=== PATIENT | male | born 1935 | race Caucasian/White ===

== ENCOUNTER → 2016-11-12 | Outpatient (CLI) | payer MEDICARE, BC ==
[~2016-11-12] MED LIST: DIAZEPAM 10 MG TABLET. ONE; HEPARIN SODIUM 5,000 UNIT/ML VIAL for PCVC. ONE; IOHEXOL 300 MG/ML 100ML VIAL. ONE; IV NORMAL SALINE 1000ML BAG 1,000 ML ONE; LIDOCAINE 1% Multi-Dose 20 ML VIAL. ONE; MIDAZOLAM HCL/PF 2 MG/2 ML VIAL. ONE; fentaNYL PF VIAL 100 MCG/2 ML VIAL ONE; hydrALAZINE 20 MG/ML VIAL. ONE
== END | disposition home or self-care (01) ==
LOC: PCVCINTER 08:39
PROVIDERS: ATTEND Nuclear Medicine Nuclear Cardiology
DX: T82.538A Leakage of other cardiac and vascular devices and implants, initial encounter (principal); I71.4 Abdominal aortic aneurysm, without rupture; I70.1 Atherosclerosis of renal artery; I15.0 Renovascular hypertension; I72.3 Aneurysm of iliac artery; E78.00 Pure hypercholesterolemia, unspecified; J98.4 Other disorders of lung; Z87.891 Personal history of nicotine dependence; Y83.8 Other surgical procedures as the cause of abnormal reaction of the patient, or of later complication, without mention of misadventure at the time of the procedure; Y92.9 Unspecified place or not applicable
CPT/HCPCS: 36252; 37236; 75630; 76937; 99152; 99153; C1725; C1751; C1769; C1876; C1887; C1894; J0360; J0690; J1644; J3010; J7030; Q9967; J2250

== ENCOUNTER → 2017-01-01 | Outpatient (CLI) | payer MEDICARE, BC | END | disposition home or self-care (01) | LOC: PCVCCLINIC 15:50 | PROVIDERS: ATTEND Nuclear Medicine Nuclear Cardiology | DX: I71.4 Abdominal aortic aneurysm, without rupture (principal); I72.4 Aneurysm of artery of lower extremity; I10 Essential (primary) hypertension; I25.10 Atherosclerotic heart disease of native coronary artery without angina pectoris; I87.2 Venous insufficiency (chronic) (peripheral); I73.9 Peripheral vascular disease, unspecified; I77.89 Other specified disorders of arteries and arterioles; E78.00 Pure hypercholesterolemia, unspecified; Z79.899 Other long term (current) drug therapy; Z95.1 Presence of aortocoronary bypass graft; Z86.73 Personal history of transient ischemic attack (TIA), and cerebral infarction without residual deficits; Z91.040 Latex allergy status | CPT/HCPCS: G0463 ==